=== PATIENT | female | born 1945 | race Asian ===

== ENCOUNTER 2021-05-12 09:51 | Outpatient (CLI) | payer MEDICARE | END 2021-05-12 09:52 | disposition home or self-care (01) | LOC: CSHMAMMO 09:51 | PROVIDERS: ATTEND Internal Medicine | DX: Z12.31 Encounter for screening mammogram for malignant neoplasm of breast (principal) | CPT/HCPCS: 77063; 77067 ==

== ENCOUNTER 2022-09-20 08:59 | Outpatient (CLI) | payer MEDICARE | END 2022-09-20 09:00 | disposition home or self-care (01) | LOC: CSHMAMMO 08:59 | PROVIDERS: ATTEND Internal Medicine | DX: Z12.31 Encounter for screening mammogram for malignant neoplasm of breast (principal) | CPT/HCPCS: 77063; 77067 ==

== ENCOUNTER 2024-02-28 09:08 | Outpatient (CLI) | payer MEDICARE | END 2024-02-28 09:09 | disposition home or self-care (01) | LOC: CSHMAMMO 09:08 | PROVIDERS: ATTEND Internal Medicine | DX: Z12.31 Encounter for screening mammogram for malignant neoplasm of breast (principal); M81.0 Age-related osteoporosis without current pathological fracture | CPT/HCPCS: 77063; 77067; 77080 ==